=== PATIENT | male | born 1980 | race Caucasian/White ===

== ENCOUNTER 2025-01-18 09:58 | Inpatient (IN) | payer BC, OTHER ==
--- NOTE | 2025-01-18 10:23 | ED ---
SOB HPI - General Source: patient, RN notes reviewed Mode of arrival: ambulatory Limitations: no limitations <Mario Joya - Last Filed: 01/18/25 10:20> <Brock Avila - Last Filed: 01/18/25 14:23> - General Chief Complaint: Shortness of Breath Stated Complaint: ABN EKG Time Seen by Provider: 01/18/25 10:09 - History of Present Illness Initial Comments: Quick note: This is a 44-year-old male with history of hypertension presenting with shortness of breath x 2 weeks. Patient endorses recently seeing Dr. Perez who advised to go to ER after discovery of a flutter on EKG. Patient states shortness of breath worsened yesterday with associated dyspnea with exertion. Endorses recent influenza diagnosis. (Mario Joya) Dictation was produced using [employer] dictation software. please excuse any grammatical, word or spelling errors. Chief Complaint: 44-year-old male transferred from primary care physician's office for new onset A-fib History of Present Illness: Patient is a 44-year-old male he had the flu couple weeks ago. He was diagnosed at an urgent care. He was still having some shortness of breath and was followed up with at primary care physician's office. He had EKG performed found to be in atrial flutter. He was sent to the emergency department for further care. Patient has no history of A-fib he states that he does have strong family history of irregular heartbeat. Denies any chest pain. Patient states that shortness of breath is worse with exertion. Denies any lower extremity symptoms. The ROS documented in this emergency department record has been reviewed and confirmed by me. Those systems with pertinent positive or negative responses have been documented in the HPI. All other systems are other negative and/or noncontributory. (Brock Avila) - Related Data Allergies Allergy/AdvReac Type Severity Reaction Status Date / Time No Known Allergies Allergy Verified 01/18/25 10:18 Review of Systems ROS Other: All systems not noted in ROS Statement are negative. <Mario Joya - Last Filed: 01/18/25 10:20> ROS Other: All systems not noted in ROS Statement are negative. <Brock Avila - Last Filed: 01/18/25 14:23> ROS Statement: Those systems with pertinent positive or pertinent negative responses have been documented in the HPI. Past Medical History Past Medical History: Hypertension Past Surgical History: No Surgical Hx Reported Additional Past Surgical History / Comment(s): vasectomy Past Psychological History: No Psychological Hx Reported Smoking Status: Never smoker Past Alcohol Use History: Occasional Past Drug Use History: None Reported <Mario Joya - Last Filed: 01/18/25 10:20> General Exam Limitations: no limitations <Mario Joya - Last Filed: 01/18/25 10:20> <Brock Avila - Last Filed: 01/18/25 14:23> - General Exam Comments Initial Comments: Visual Physical Exam Vital signs reviewed General: Well-appearing, nontoxic, no acute distress. Head: Normocephalic, atraumatic Eyes: PERRLA, EOMI ENT: Airway patent Chest: Nonlabored breathing Skin: No visual rash, normal skin tone Neuro: Alert and oriented 3 Musculoskeletal: No gross abnormalities (Mario Joya) PHYSICAL EXAM: General Impression: Alert and oriented x3, not in acute distress HEENT: Normocephalic atraumatic, extra-ocular movements intact, pupils equal and reactive to light bilaterally, mucous membranes moist. Cardiovascular: Irregularly irregular Chest: Able to complete full sentences, no retractions, no tachypnea Abdomen: abdomen soft, non-tender, non-distended, no organomegaly Musculoskeletal: Pulses present and equal in all extremities, no peripheral eddie a Motor: no focal deficits noted Neurological: CN II-XII grossly intact, no focal motor or sensory deficits noted Skin: Intact with no visualized rashes Psych: Normal affect and mood (Brock Avila) Course Vital Signs 01/18/25 01/18/25 01/18/25 10:12 13:34 13:56 Temperature 97.8 F Pulse Rate 124 H 115 H 130 H Respiratory 26 H 20 20 Rate Blood Pressure 152/109 136/107 145/113 O2 Sat by Pulse 98 98 98 Oximetry Medical Decision Making <Mario Joya - Last Filed: 01/18/25 10:20> - Lab Data Result diagrams: 01/18/25 11:20 01/18/25 11:23 <Bayudan,Brock D - Last Filed: 01/18/25 14:23> - Medical Decision Making I completed the quick note portion of this chart signed GRANT Renee (Mario Joya) My EKG interpretation: Ventricular rate 130, A-fib with RVR, QRS 100, QTc 398. No NJ prolongation, no QTC prolongation, no ST or T-wave changes noted. Was pt. sent in by a medical professional or institution (, FABY, INVESTMENT ANALYST, urgent care, hospital, or fci...) When possible be specific @ -No Did you speak to anyone other than the patient for history (EMS, parent, family, police, friend...)? What history was obtained from this source @ -No Did you review nursing and triage notes (agree or disagree)? Why? @ -I reviewed and agree with nursing and triage notes Were old charts reviewed (outside hosp., previous admission, EMS record, old EKG, old radiological studies, urgent care reports/EKG's, fci records)? Report findings @ -No old charts were reviewed Differential Diagnosis (chest pain, altered mental status, abdominal pain women, abdominal pain men, vaginal bleeding, musculoskeletal, weakness, fever, dyspnea, syncope, headache, dizziness, GI bleed, back pain, seizure, CVA, palpatations, mental health)? @ -Differential Dyspnea: Coronary syndrome, arrhythmia, tamponade, asthma, COPD, pulmonary embolism, pneumonia, pneumothorax, pulmonary effusion, anaphylaxis, diabetic ketoacidosis, flailed chest, pulmonary contusion, diaphragmatic rupture, anemia, neuromuscular, this is not meant to be an all-inclusive list. EKG interpreted by me (3pts min.). @ -See above X-rays interpreted by me (1pt min.). @ -Chest x-ray is nonacute CT interpreted by me (1pt min.). @ -CT angiography of the chest shows no PE U/S interpreted by me (1pt. min.). @ -None done What testing was considered but not performed or refused? (CT, X-rays, U/S, labs)? Why? @ -None What meds were considered but not given or refused? Why? @ -None Was smoking cessation discussed for >3mins.? @ -No Were there social determinants of health that impacted care today? How? (Homelessness, low income, unemployed, alcoholism, drug addiction, transportation, low edu. Level, literacy, decrease access to med. care, usp, rehab)? @ -No Was there de-escalation of care discussed even if they declined (Discuss DNR or withdrawal of care, Hospice)? DNR status @ -No What co-morbidities impacted this encounter? (DM, HTN, Smoking, COPD, CAD, Cancer, CVA, ARF, Chemo, Hep., AIDS, mental health diagnosis, sleep apnea, morbid obesity)? @ -None Was patient admitted / discharged? Hospital course, mention meds given and route, prescriptions, significant lab abnormalities, going to OR and other pertinent info. @ -44-year-old male sent in from primary care physician office for new onset atrial flutter. Vital signs upon arrival shows heart rate of 124, blood pressure normal. Patient well-appearing in no acute distress. Started on Cardizem and anticoagulation medication patient will be admitted consultation to cardiology. Patient heart rate improving with Cardizem. Case discussed with hospitalist for admission Did you discuss the management of the patient with other professionals (professionals i.e. , PA, INVESTMENT ANALYST, lab, RT, psych nurse, social media assistant, electric needle specialist, teacher, medical information officer, manager of case)? Give summary @ -See above Was critical care preformed (if so, how long)? @ -Yes, 33 minutes Undiagnosed new problem with uncertain prognosis? @ -No Drug Therapy requiring intensive monitoring for toxicity (Heparin, Nitro, Insulin, Cardizem)? @ -No Were any procedures done? @ -No Diagnosis/symptom? Acute, or Chronic, or Acute on Chronic? Uncomplicated (without systemic symptoms) or Complicated (systemic symptoms)? @ -A-fib with RVR Side effects of treatment? @ -No Exacerbation, Progression, or Severe Exacerbation? @ -No Poses a threat to life or bodily function? How? (Chest pain, USA, CA, pneumonia, PE, COPD, DKA, ARF, appy, cholecystitis, CVA, Diverticulitis, Homicidal, Suicida l, threat to staff... and all critical care pts) @ -yes (Brock Avila) - Lab Data Lab Results 01/18/25 01/18/25 01/18/25 Range/Units 11:20 11:23 11:23 WBC 8.68 (4.50-10.00) 10*3/uL RBC 4.50 (4.40-5.60) 10*6/uL Hgb 14.5 (13.0-17.0) g/dL Hct 41.3 (39.6-50.0) % MCV 91.8 (80.0-97.0) fL MCH 32.2 H (27.0-32.0) pg MCHC 35.1 (32.0-37.0) g/dL Plt Count 225 (140-440) 10*3/uL MPV 9.4 L (9.5-12.2) fL Immature Gran % (Auto) 0.7 % Neutrophils % 65.4 % Lymphocytes % 26.3 % Monocytes % 6.2 % Eosinophils % 0.5 % Basophils % 0.9 % Immature Gran # 0.06 H (0.00-0.04) 10*3/uL Neutrophils # 5.68 (1.80-7.70) 10*3/uL Lymphocytes # 2.28 (0.90-5.00) 10*3/uL Monocytes # 0.54 (0.20-1.00) 10*3/uL Eosinophils # 0.04 (0.04-0.35) 10*3/uL Basophils # 0.08 (0.00-0.10) 10*3/uL PT 11.1 (10.0-12.5) sec INR 1.0 (<1.2) APTT 22.1 (22.0-30.0) sec D-Dimer 0.68 H (<0.60) mg/L FEU Sodium 134 L (137-145) mmol/L Potassium 4.9 (3.5-5.1) mmol/L Chloride 106 (98-107) mmol/L Carbon Dioxide 22 (22-30) mmol/L Anion Gap 6 mmol/L BUN 18 (9-20) mg/dL Creatinine 1.03 (0.66-1.25) mg/dL Est GFR (CKD-EPI)AfAm >90 (>60 ml/min/1.73 sqM) Est GFR (CKD-EPI)NonAf 87 (>60 ml/min/1.73 sqM) Glucose 135 H (74-99) mg/dL Plasma Lactic Acid Sav (0.7-2.0) mmol/L Calcium 9.6 (8.4-10.2) mg/dL Magnesium 1.9 (1.6-2.3) mg/dL Total Bilirubin 1.2 (0.2-1.3) mg/dL AST 35 (17-59) U/L ALT 59 H (4-49) U/L Alkaline Phosphatase 79 (38-126) U/L Troponin I (0.000-0.034) ng/mL NT-Pro-B Natriuret Pep 1800 pg/mL Total Protein 6.8 (6.3-8.2) g/dL Albumin 4.1 (3.5-5.0) g/dL 01/18/25 01/18/25 Range/Units 11:23 11:23 WBC (4.50-10.00) 10*3/uL RBC (4.40-5.60) 10*6/uL Hgb (13.0-17.0) g/dL Hct (39.6-50.0) % MCV (80.0-97.0) fL MCH (27.0-32.0) pg MCHC (32.0-37.0) g/dL Plt Count (140-440) 10*3/uL MPV (9.5-12.2) fL Immature Gran % (Auto) % Neutrophils % % Lymphocytes % % Monocytes % % Eosinophils % % Basophils % % Immature Gran # (0.00-0.04) 10*3/uL Neutrophils # (1.80-7.70) 10*3/uL Lymphocytes # (0.90-5.00) 10*3/uL Monocytes # (0.20-1.00) 10*3/uL Eosinophils # (0.04-0.35) 10*3/uL Basophils # (0.00-0.10) 10*3/uL PT (10.0-12.5) sec INR (<1.2) APTT (22.0-30.0) sec D-Dimer (<0.60) mg/L FEU Sodium (137-145) mmol/L Potassium (3.5-5.1) mmol/L Chloride (98-107) mmol/L Carbon Dioxide (22-30) mmol/L Anion Gap mmol/L BUN (9-20) mg/dL Creatinine (0.66-1.25) mg/dL Est GFR (CKD-EPI)AfAm (>60 ml/min/1.73 sqM) Est GFR (CKD-EPI)NonAf (>60 ml/min/1.73 sqM) Glucose (74-99) mg/dL Plasma Lactic Acid Sav 1.8 (0.7-2.0) mmol/L Calcium (8.4-10.2) mg/dL Magnesium (1.6-2.3) mg/dL Total Bilirubin (0.2-1.3) mg/dL AST (17-59) U/L ALT (4-49) U/L Alkaline Phosphatase (38-126) U/L Troponin I <0.012 (0.000-0.034) ng/mL NT-Pro-B Natriuret Pep pg/mL Total Protein (6.3-8.2) g/dL Albumin (3.5-5.0) g/dL Disposition <Mario Joya - Last Filed: 01/18/25 10:20> Decision Time: 14:22 <Brock Avila - Last Filed: 01/18/25 14:23> Clinical Impression: New onset a-fib Disposition: ADMITTED IP TO THIS HOSP Condition: Fair Referrals: Dilan Perez MD [Primary Care Provider] - 1-2 days
--- NOTE | 2025-01-18 10:49 | XR ---
EXAMINATION TYPE: XR chest 2V DATE OF EXAM: 01/18/2025 10:40 AM COMPARISON: None. CLINICAL INDICATION: Male, 44 years old with history of difficulty breathing, TECHNIQUE: XR chest 2V view(s) obtained. FINDINGS: The heart size is normal. The pulmonary vasculature is normal. The lungs are clear. IMPRESSION: 1. No acute pulmonary process. [facility], , 01/18/2025 10:47 AM
[2025-01-18 11:49] LABS: Basophils # (A) 0.08 10*3/uL (0.00-0.10); Basophils % (A) 0.9 %; Eosinophils # (A) 0.04 10*3/uL (0.04-0.35); Eosinophils % (A) 0.5 %; HCT 41.3 % (39.6-50.0); HGB 14.5 g/dL (13.0-17.0); Lymphocytes # (A) 2.28 10*3/uL (0.90-5.00); Lymphocytes % (A) 26.3 %; MCH 32.2 pg (27.0-32.0); MCHC 35.1 g/dL (32.0-37.0); MCV 91.8 fL (80.0-97.0); Mean Platelet Volume 9.4 fL (9.5-12.2); Monocytes # (A) 0.54 10*3/uL (0.20-1.00); Monocytes % (A) 6.2 %; Neutrophils # (A) 5.68 10*3/uL (1.80-7.70); Neutrophils % (A) 65.4 %; Platelet Count 225 10*3/uL (140-440); RDW 11.9 % (11.5-14.5); WBC 8.68 10*3/uL (4.50-10.00)
[2025-01-18 12:06] LABS: ALT 59 U/L (4-49); AST 35 U/L (17-59); African American GFR (CKD) >90 (>60 ml/min/1.73 sqM); Albumin 4.1 g/dL (3.5-5.0); Alkaline Phosphatase 79 U/L (38-126); Anion Gap 6 mmol/L; Blood Urea Nitrogen 18 mg/dL (9-20); Calcium 9.6 mg/dL (8.4-10.2); Carbon Dioxide 22 mmol/L (22-30); Chloride 106 mmol/L (98-107); Glucose 135 mg/dL (74-99); Magnesium 1.9 mg/dL (1.6-2.3); Non-African American GFR(CKD) 87 (>60 ml/min/1.73 sqM); Potassium 4.9 mmol/L (3.5-5.1); Sodium 134 mmol/L (137-145); Total Bilirubin 1.2 mg/dL (0.2-1.3); Total Protein 6.8 g/dL (6.3-8.2)
[2025-01-18 12:13] LABS: NT-Pro-B-Type Natriuretic Pept 1800 pg/mL
[2025-01-18 12:29] LABS: Partial Thromboplastin Time 22.1 sec (22.0-30.0); Prothrombin Time 11.1 sec (10.0-12.5)
[2025-01-18] MEDS: SODIUM CHLORIDE 0.9% 1,000 ML IV STA (13:02)
--- NOTE | 2025-01-18 13:44 | CT ---
EXAMINATION TYPE: CT angio chest DATE OF EXAM: 01/18/2025 COMPARISON: None CLINICAL INDICATION: Male, 44 years old with history of positive D-dimer; PHH, Positive D-dimer. TECHNIQUE: CTA scan of the thorax is performed with IV Contrast, patient injected with 100 ml mL of Isovue 370, pulmonary embolism protocol. MIP images are created and reviewed. CT DLP: 1047.[address] CTDI: mGy Automated exposure control for dose reduction was used. FINDINGS: There are no filling defects within the pulmonary arterial circulation suggest pulmonary embolism. He art size appears mildly prominent. The great vessels chest are normal. There is no mediastinal, hilar or axillary adenopathy. There is a small focal cluster of tree-in-bud densities in the right lower lobe posteriorly and a 10 to 11 mm groundglass density in the left upper lobe anteriorly. These are nonspecific findings but mo st likely represent small focal areas of inflammation which could be either acute or chronic. Follow- up CT in 3 months is recommended for further evaluation. There is no airspace consolidation. No pleural effusion or pneumothorax. Limited scanning through the upper abdomen reveals liver steatosis. No focal osseous lesions are seen. IMPRESSION: 1. No pulmonary embolism. 2. Small focal lung parenchymal abnormalities as described above which are nonspecific and could repr esent small focal areas of acute or chronic inflammation.. Follow-up CT in 3 months is recommended. 3. Liver steatosis. [facility], , 01/18/2025 1:42 PM
[2025-01-18] MEDS ORDERED: NALOXONE 0.4 MG/ML 1 ML VIAL IV PRN (14:14)
[2025-01-18] MEDS: DILTIAZEM 125 MG in SODIUM CHLORIDE 0.9% 100 ML IV SCH (14:25)
[2025-01-18] MEDS: DILTIAZEM DRIP BOLUS FROM BAG 1 MG SOLN IV ONE (14:25)
[2025-01-18] MEDS: HEPARIN SODIUM 1,000 UN/ML (10ML VL) IV ONE (14:27)
[2025-01-18] MEDS: HEPARIN SOD,PORK IN 0.45% NACL 25,000 UNIT in 0.45% NACL 1 250ML.BAG IV SCH (14:29)
[2025-01-18] MEDS: SODIUM CHLORIDE 0.9% 1,000 ML IV SCH (14:50)
--- NOTE | 2025-01-18 16:01 | P.HPIM ---
History of Present Illness H&P Date: 01/18/25 Patient is a 44-year-old male with past medical history of morbid obesity BMI 46, not following with primary care physician for years, who presented to the ER from his new PCP office for abnormal EKG showing a flutter reportedly. He schedule an appointment for01/18 for evaluation of ongoing shortness of breath that started 2 or 3 weeks ago after he was diagnosed with flu at urgent care. On 01/17 his shortness of breath got to the point where he could not catch up on his breath, and then resolved by the evening and he has been feeling back to his normal ever since. He does some heavy duty at work, transports heavy objects, usually gets short of breath but recovers fast, lately noted that his recovery time has increased significantly. He denies any associated chest pain, discomfort, abdominal pain, fevers, chills, diaphoresis, nausea, vomiting, dizziness, lightheadedness, abdominal discomfort, changes in bowel habits, urinary symptoms, lower extremity swelling. Denied PND, orthopnea He denies any history of previous cardiac disease. Family history is significant for abnormal heartbeats in his maternal grandfather. He is a non- smoker, no history of heavy alcohol use, no drug use. On arrival he was afebrile and tachycardic with heart rate in 124, BP elevated 152/109, satting well on room air. Lab work significant for normal CBC, elevated D-dimer 0.68, otherwise unremarka ble coagulation, chemistry profile with sodium of 134, normal potassium, chloride, bicarb, creatinine, glucose elevated 135, plasma lactic acid normal, troponin negative, ALT mildly elevated 59, normal AST, BNP 1800 EKG showed A-fib with RVR heart rate in 130s, personally reviewed. Chest x-ray reviewed, no acute cardiopulmonary process. CTA showed no signs of PE, did reveal small focal lung parenchymal abnormalities, nonspecific, follow-up CT in 3 months recommended. Liver steatosis. Patient will be admitted for further evaluation of new onset A-fib with RVR, started on heparin and Cardizem drips, cardiology consulted, TTE ordered Pertinent positives and negatives as discussed in HPI, a complete review of systems was performed and all other systems are negative. Patient seen and examined at bedside. Vital signs reviewed General: nontoxic, no distress, appears at stated age, obese Derm: warm, dry Head: atraumatic, normocephalic, symmetric Eyes: EOMI, no lid lag, anicteric sclera, pupils equal round reactive to light ENT: Nose and ears atraumatic Neck: No thyromegaly, supple Mouth: no lip lesion, mucus membranes moist Cardiovascular: S1S2 irreg, tachycardic, no murmur Lungs: clear to auscultation bilateral, no rhonchi, no rales, no wheeze, no accessory muscle use Abdominal: soft, nontender to palpation, no guarding, no appreciable organomegaly Ext: no gross muscle atrophy, muscle strength muscle strength 5 out of 5 in all 4 extremities, no contractures Neuro: CN II-XII grossly intact Psych: Alert, oriented, appropriate affect Assessment/Plan: New onset A-fib with RVR -Cardiology consulted, appreciate recommendations -Continue heparin drip -Continue diltiazem drip, discussed with ER, provided with additional bolus of 20 mg IV once, currently infusing at 10 mg/h, heart rate controlled in 90s -Continue telemetry -TSH, lipid profile, A1c ordered -Recommend outpatient sleep study -TTE ordered and pending Morbid obesity BMI 46 Hepatic steatosis elevated liver enzymes 2/2 above -Recommend structured weight loss program The patient is admitted with an anticipated [greater] than 2 midnight stay as [inpatient/] status for evaluation of new onset A-fib CODE STATUS: Full code DVT prophylaxis: Heparin drip Anticipated discharge date: TBD Anticipated discharge place: Home A total of 40 minutes was spent on the care of this complex patient more than 50% of the time was spent in counseling and care coordination. Past Medical History Past Medical History: Hypertension Past Surgical History: No Surgical Hx Reported Additional Past Surgical History / Comment(s): vasectomy Past Psychological History: No Psychological Hx Reported Smoking Status: Never smoker Past Alcohol Use History: Occasional Past Drug Use History: None Reported Medications and Allergies Allergies Allergy/AdvReac Type Severity Reaction Status Date / Time No Known Allergies Allergy Verified 01/18/25 10:18 Physical Exam Vitals: Vital Signs Temp Pulse Resp BP Pulse Ox 01/18/25 13:56 130 H 20 145/113 98 01/18/25 13:34 115 H 20 136/107 98 01/18/25 10:12 97.8 F 124 H 26 H 152/109 98 Intake and Output 0401/18/25 01/18/25 22:59 06:59 14:59 Other: Weight 149.685 kg Results CBC & Chem 7: 01/18/25 11:20 01/18/25 11:23 Labs: Abnormal Lab Results - Last 24 Hours (Table) 01/18/25 01/18/25 01/18/25 Range/Units 11:20 11:23 11:23 MCH 32.2 H (27.0-32.0) pg MPV 9.4 L (9.5-12.2) fL Immature Gran # 0.06 H (0.00-0.04) 10*3/uL D-Dimer 0.68 H (<0.60) mg/L FEU Sodium 134 L (137-145) mmol/L Glucose 135 H (74-99) mg/dL ALT 59 H (4-49) U/L
[2025-01-18] MEDS: HEPARIN SODIUM 1,000 UN/ML (10ML VL) IV PRN (22:05)
[2025-01-19 02:53] LABS: Chol/HDL Ratio 6.87 Ratio; LDL Cholesterol,Calculated 165.1 mg/dL (0.0-131.0)
[2025-01-19] MEDS ORDERED: ALPRAZolam 0.25 MG TAB PO PRN (09:20)
[2025-01-19] MEDS ORDERED: ALPRAZolam 0.5 MG TAB PO PRN (09:20)
[2025-01-19] MEDS ORDERED: NITROGLYCERIN SL TABS 0.4 MG TAB SUBLINGUAL PRN (09:20)
[2025-01-19] MEDS: DAPAGLIFLOZIN PROPANEDIOL 10 MG TABLET PO SCH (10:16)
[2025-01-19] MEDS: ATORVASTATIN 80 MG TAB PO STA (10:16)
[2025-01-19] MEDS: ASPIRIN 325 MG TAB PO STA (10:16)
[2025-01-19] MEDS: METOPROLOL SUCCINATE (ER) 25 MG TAB.ER.24H PO SCH (10:17)
--- NOTE | 2025-01-19 10:54 | P.CRDCN ---
History of Present Illness Consult date: 01/19/25 Reason for Consult (text): New onset atrial fibrillation History of present illness: This is a 44-year-old male with no previous cardiac history and does not follow with a hand edger. He has a past medical history of ADD. We have been asked to evaluate the patient for new onset of atrial fibrillation. Patient gives history that 2 days ago he woke up with shortness of breath was unable to catch his breath for a long period of time during the day by 8 PM in the evening he was feeling back to normal. He decided to set up an appointment with a PCP and was seen yesterday in the office. Patient was found to be in atrial fibrillation and was sent to [facility] for evaluation. Patient was found to be in atrial fibrillation with RVR and has since converted to sinus rhythm. Patient was started on heparin drip and Cardizem drip. He states he has had a cough and at that time tightness in his chest. He denies palpitations. He states he had hypertension 13 years ago and his blood pressure was 150/85 approximately on medication and he decided to stop the medication because the medications did not improve his blood pressure readings. He denies prior history of diabetes but his A1c is 6.8. He denies any blood in his urine or stool. No lightheadedness or dizziness. No syncopal episodes. 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 He denies smoking history. He states he does not drink alcohol often but when he does he overindulges. Patient also notes that he snores and has not had a workup for JAYSHREE. Patient presented with a blood pressure of 152/109. Blood pressure 131/87, heart rate 88, pulse ox 97% on room air. Patient is feeling well at the time of evaluation. Preliminary report on echocardiogram is a low EF. Because of this, Dr. Geroge discussed with the patient recommendations for cardiac c atheterization and he is agreeable to move forward with this today. -EKG: Atrial fibrillation with ventricular rate of 130 bpm. Repeat EKG this morning is sinus rhythm nonspecific T wave changes. -Chest x-ray: No acute process. -CTA chest: No pulmonary embolism. Small focal lung parenchymal abnormalities nonspecific could represent focal areas of acute or chronic inflammation. Liver steatosis. -Laboratory studies: WBC 8.6, hemoglobin 14.5, D-dimer 0.68, sodium 134, BUN 18 creatinine 1.03. Troponin negative x 1. proBNP 1800. Triglycerides 281, cholesterol 259, LDL 165, TSH 2.7. Hemoglobin A1c 6.8. Magnesium 1.9. -Home cardiac medications: Losartan 50 daily was prescribed on 01/18 and patient has not started it. - Review Of Systems: At the time of my exam: CONSTITUTIONAL: Denies fever or chills. HEENT: Denies blurred vision, vision changes, or eye pain. Denies hemoptysis CARDIOVASCULAR: Denies chest pain. Denies orthopnea. Denies PND. Denies palpitations RESPIRATORY: Denies shortness of breath. GASTROINTESTINAL: Denies abdominal pain. Denies nausea or vomiting. HEMATOLOGIC: Denies bleeding disorders. GENITOURINARY: Denies any blood in urine. SKIN: Denies puritis. Denies rash. Physical examination: Gen: This is a morbidly obese 44-year-old male in no acute distress VS: reviewed HEENT: Head is atraumatic, normocephalic. Pupils equal, round. Sclerae is anicteric. NECK: Supple. No JVD. LUNGS: Clear to auscultation. No wheezes or rhonchi. No intercostal retractions. HEART: Regular rate and rhythm. No murmur. ABDOMEN: Soft No tenderness. EXTREMITIES: No pedal edema. No calf tenderness. NEUROLOGICAL: Patient is awake, alert and oriented x3. Assessment: New onset of paroxysmal atrial fibrillation with RVR, converted to sinus rhythm Cardiomyopathy, ischemic versus nonischemic Uncontrolled hypertension Elevated D-dimer, PE ruled out by CTA Hyperlipidemia Suspect obstructive sleep apnea and recommend outpatient sleep study Morbid obesity with BMI of 45 Hepatic steatosis Plan: Discontinue heparin drip prior to cardiac catheterization Discontinue Cardizem drip Start patient on a atorvastatin 40 mg at bedtime, Eliquis 5 mg twice daily, Toprol XL 25 mg daily, Aldactone 25 mg daily, Farxiga 10 mg daily Schedule patient for cardiac catheterization today with Dr. George Obtain 2-D echocardiogram and Doppler study report Further recommendations to follow based upon clinical course At the time of discharge, patient will follow-up with Dr. George in the office in 1 week Thank you kindly for this consultation. Nurse practitioner note has been reviewed, I agree with documented findings and plan of care. Patient was seen and examined. Past Medical History Past Medical History: Hypertension History of Any Multi-Drug Resistant Organisms: None Reported Past Surgical History: No Surgical Hx Reported Additional Past Surgical History / Comment(s): vasectomy Past Psychological History: No Psychological Hx Reported Smoking Status: Never smoker Past Alcohol Use History: Occasional Past Drug Use History: None Reported Medications and Allergies Home Medications Medication Instructions Recorded Confirmed Type Calcium Carb/Mag Ox/Zinc Sulf 1 tab PO BID 01/18/25 01/18/25 History [Mzh-Uey-Bywz 334-134-5 mg Tab] Ibuprofen [Motrin Ib] 600 mg PO BID 01/18/25 01/18/25 History Losartan [Cozaar] 50 mg PO DIRECTED 01/18/25 01/18/25 History Sildenafil Citrate [Viagra] 100 mg PO DIRECTED PRN 01/18/25 01/18/25 History Allergies Allergy/AdvReac Type Severity Reaction Status Date / Time No Known Allergies Allergy Verified 01/18/25 16:23 Physical Exam Vitals: Vital Signs Temp Pulse Pulse Resp BP BP Pulse Ox 01/19/25 04:00 98.5 F 94 17 106/79 98 01/19/25 01:45 78 18 01/18/25 23:21 92 18 01/18/25 22:50 98.3 F 89 17 132/95 99 01/18/25 21:47 110 H 18 104/77 98 01/18/25 19:35 98 18 108/78 98 01/18/25 18:03 104 H 18 102/89 97 01/18/25 16:57 105 H 18 105/87 100 01/18/25 16:03 111 H 18 108/78 98 01/18/25 14:52 81 18 106/67 96 01/18/25 13:56 130 H 20 145/113 98 01/18/25 13:34 115 H 20 136/107 98 01/18/25 10:12 97.8 F 124 H 26 H 152/109 98 Intake and Output 01/18/25 01/19/25 01/19/25 22:59 06:59 14:59 Intake Total 75.833 230.986 85 Balance 75.833 230.986 85 Intake: Intake, IV Titration 75.833 230.986 85 Amount Diltiazem 125 mg In 93.167 85 Sodium Chloride 0.9% 100 ml @ 10 MG/HR 10 mls/hr IV .[id number] [facility] Rx#: [id number] Heparin Sod,Pork in 0.45% 75.833 137.819 NaCl 25,000 unit In 0.45 % NaCl 1 250ml.bag @ 6. 681 UNITS/KG/HR 10 mls/hr IV .Q24H [facility] Rx#: [id number] Other: Voiding Method Toilet # Voids 1 Weight 149.685 kg 146.4 kg Results 01/18/25 11:20 01/18/25 11:23 Cardiac Enzymes 01/18/25 01/18/25 Range/Units 11:23 11:23 AST 35 (17-59) U/L Troponin I <0.012 (0.000-0.034) ng/mL Coagulation 01/18/25 01/18/25 01/19/25 Range/Units 11:23 20:38 03:52 PT 11.1 (10.0-12.5) sec APTT 22.1 23.5 27.2 (22.0-30.0) sec Lipids 01/18/25 Range/Units 11:23 Triglycerides 281.00 H (0.00-149.00) mg/dL Cholesterol 259.00 H (0.00-200.00) mg/dL HDL Cholesterol 37.70 L (40.00-60.00) mg/dL Cholesterol/HDL Ratio 6.87 Ratio CBC 01/18/25 Range/Units 11:20 WBC 8.68 (4.50-10.00) 10*3/uL RBC 4.50 (4.40-5.60) 10*6/uL Hgb 14.5 (13.0-17.0) g/dL Hct 41.3 (39.6-50.0) % Plt Count 225 (140-440) 10*3/uL Comprehensive Metabolic Panel 01/18/25 Range/Units 11:23 Sodium 134 L (137-145) mmol/L Potassium 4.9 (3.5-5.1) mmol/L Chloride 106 (98-107) mmol/L Carbon Dioxide 22 (22-30) mmol/L BUN 18 (9-20) mg/dL Creatinine 1.03 (0.66-1.25) mg/dL Glucose 135 H (74-99) mg/dL Calcium 9.6 (8.4-10.2) mg/dL AST 35 (17-59) U/L ALT 59 H (4-49) U/L Alkaline Phosphatase 79 (38-126) U/L Total Protein 6.8 (6.3-8.2) g/dL Albumin 4.1 (3.5-5.0) g/dL Current Medications Generic Name Dose Route Start Last Admin Trade Name Freq PRN Reason Stop Dose Admin Atorvastatin Calcium 40 mg 01/19/25 21:00 Atorvastatin 40 Mg Tab PO HS [facility] Heparin Sodium (Porcine) 0 unit 01/18/25 14:01 01/19/25 05:03 Heparin Sodium 1,000 Un/Ml (10ml Vl) IV 7,300 unit PER PROTOCOL PRN Administration Low PTT Protocol Heparin Sodium/Sodium Chloride 250 mls @ 10 mls/hr 01/18/25 14:15 01/19/25 06:59 25,000 unit/ Sodium Chloride IV 12.681 units/kg/hr .Q24H [facility] 18.982 mls/hr Administration Protocol 6.681 UNITS/KG/HR Diltiazem HCl 125 mg/ Sodium 125 mls @ 10 mls/hr 01/18/25 14:15 01/19/25 08:14 Chloride IV 10 mg/hr .[id number] [facility] 10 mls/hr Administration 10 MG/HR Naloxone HCl 0.2 mg 01/18/25 14:14 Naloxone 0.4 Mg/Ml 1 Ml Vial IV Q2M PRN Opioid Reversal Intake and Output 01/18/25 01/19/25 01/19/25 22:59 06:59 14:59 Intake Total 75.833 230.986 85 Balance 75.833 230.986 85 Intake: Intake, IV Titration 75.833 230.986 85 Amount Diltiazem 125 mg In 93.167 85 Sodium Chloride 0.9% 100 ml @ 10 MG/HR 10 mls/hr IV .[id number] [facility] Rx#: [id number] Heparin Sod,Pork in 0.45% 75.833 137.819 NaCl 25,000 unit In 0.45 % NaCl 1 250ml.bag @ 6. 681 UNITS/KG/HR 10 mls/hr IV .Q24H [facility] Rx#: [id number] Other: Voiding Method Toilet # Voids 1 Weight 149.685 kg 146.4 kg 01/18/25 11:20 01/18/25 11:23
--- NOTE | 2025-01-19 11:28 | CA ---
Transthoracic Echo Report Name: Rah lEmore Age: 44 Gender: M : 1980 Exam Date: 01/19/2025 08:21 Exam Location: [facility] Ht (in): 71 Wt (lb): 330 Ordering Physician: Hiral Olivo MD Attending/Referring Phys: Explosives Handler Leslee Blair RDCS Procedure CPT: Indications: new afib RVR Cardiac Hx: Technical Quality: Fair, Poor Contrast 1: Definity Total Dose (mL): 2 Contrast 2: Total Dose (mL): MEASUREMENTS (Male / Female) Normal Values 2D ECHO LV Diastolic Diameter PLAX 6.4 cm 4.2 - 5.9 / 3.9 - 5.3 cm LV Systolic Diameter PLAX 5.6 cm IVS Diastolic Thickness 1.2 cm 0.6 - 1.0 / 0.6 - 0.9 cm LVPW Diastolic Thickness 1.3 cm 0.6 - 1.0 / 0.6 - 0.9 cm LV Relative Wall Thickness 0.4 RV Internal Dim ED PLAX 3.1 cm LA Systolic Diameter LX 6.0 cm 3.0 - 4.0 / 2.7 - 3.8 cm LA Volume 158.4 cm??? 18 - 58 / 22 - 52 cm??? LA Volume Index 56.3 cm???/m??? 16 - 28 cm???/m??? M-MODE Aortic Root Diameter MM 3.6 cm LA Systolic Diameter MM 5.5 cm LA Ao Ratio MM 1.5 AV Cusp Separation MM 2.3 cm DOPPLER MV Area PHT 4.1 cm??? Mitral E Point Velocity 108.8 cm/s Mitral A Point Velocity 0.6 cm/s Mitral E to A Ratio 196.1 MV Deceleration Time 185.5 ms TR Peak Velocity 264.3 cm/s TR Peak Gradient 27.9 mmHg FINDINGS Left Ventricle Left ventricular ejection fraction is estimated at 20-25 %. Mildly increased septal wall thickness. Moderately increased left ventricular diastolic diameter. Severely reduced global left ventricular systolic function. Right Ventricle Moderate right ventricular dilatation. Right ventricular systolic pressure within normal limits. Right Atrium Moderate right atrial dilatation. Left Atrium Severely increased left atrial diameter. Severely increased left atrial volume. Moderately increased left atrial area. Mitral Valve Structurally normal mitral valve. Vpxv-[id number] mitral regurgitation. No mitral stenosis. Aortic Valve Trileaflet aortic valve. No aortic valve stenosis or regurgitation. Tricuspid Valve Structurally normal tricuspid valve. Mild tricuspid regurgitation. No tricuspid stenosis. Pulmonic Valve Structurally normal pulmonic valve. Trace pulmonic regurgitation. No pulmonic stenosis. Pericardium No pericardial or pleural effusion. Aorta Aorta at upper limits of normal. CONCLUSIONS Dilated LV. Impaired LV systolic function with EF between 20 to 25% with global hypokinesia Mild to moderate mitral regurgitation Dilated right ventricle with impaired function No pericardial effusion Previewed by: Dr. Thomas Chandra MD (Electronically Signed) Final Date: 19 January 2025 11:27
--- NOTE | 2025-01-19 11:37 | P.PN ---
Subjective Progress Note Date: 01/19/25 Hospital Course: Patient is a 44-year-old male with past medical history of morbid obesity BMI 46, not following with primary care physician for years, who presented to the ER from his new PCP office for abnormal EKG showing a flutter reportedly. He schedule an appointment for01/18 for evaluation of ongoing shortness of breath that started 2 or 3 weeks ago after he was diagnosed with flu at urgent care. On 01/17 his shortness of breath got to the point where he could not catch up on his breath, and then resolved by the evening and he has been feeling back to his normal ever since. He does some heavy duty at work, transports heavy objects, usually gets short of breath but recovers fast, lately noted that his recovery time has increased significantly. He denies any associated chest pain, discomfort, abdominal pain, fevers, chills, diaphoresis, nausea, vomiting, dizziness, lightheadedness, abdominal discomfort, changes in bowel habits, urinary symptoms, lower extremity swelling. Denied PND, orthopnea He denies any history of previous cardiac disease. Family history is significant for abnormal heartbeats in his maternal grandfather. He is a non- smoker, no history of heavy alcohol use, no drug use. On arrival he was afebrile and tachycardic with heart rate in 124, BP elevated 152/109, satting well on room air. Lab work significant for normal CBC, elevated D-dimer 0.68, otherwise unremarkable coagulation, chemistry profile with sodium of 134, normal potassium, chloride, bicarb, creatinine, glucose elevated 135, plasma lactic acid normal, troponin negative, ALT mildly elevated 59, normal AST, BNP 1800 EKG showed A-fib with RVR heart rate in 130s, personally reviewed. Chest x-ray reviewed, no acute cardiopulmonary process. CTA showed no signs of PE, did reveal small focal lung parenchymal abnormalities, nonspecific, follow-up CT in 3 months recommended. Liver steatosis. Patient will be admitted for further evaluation of new onset A-fib with RVR, started on heparin and Cardizem drips, cardiology consulted, TTE ordered 01/19 to sinus rhythm, Cardizem discontinued. A1c elevated 6.8, patient notified, started on atorvastatin 40 mg. Cardiology started Eliquis 5 mg twice daily, Toprol-XL 25 daily, Aldactone 25 mg daily, Farxiga 10 mg daily as TTE showed EF of 20 to 25% mild global hypokinesis, mild to moderate mitral regurg, no pericardial effusion, plan for heart cath today. Pertinent Imaging: TTE as above Subjective: Feels back to baseline, denied chest pain, shortness of breath Pertinent positives and negatives as discussed above, a complete review of systems was performed and all other systems are negative. Vitals Signs Reviewed. General: nontoxic, no distress, appears at stated age, obese Derm: warm, dry Head: atraumatic, normocephalic, symmetric Eyes: EOMI, no lid lag, anicteric sclera, pupils equal round reactive to light ENT: Nose and ears atraumatic Neck: No thyromegaly, supple Mouth: no lip lesion, mucus membranes moist Cardiovascular: S1S2 irreg, tachycardic, no murmur Lungs: clear to auscultation bilateral, no rhonchi, no rales, no wheeze, no accessory muscle use Abdominal: soft, nontender to palpation, no guarding, no appreciable organomegaly Ext: no gross muscle atrophy, muscle strength muscle strength 5 out of 5 in all 4 extremities, no contractures Neuro: CN II-XII grossly intact Psych: Alert, oriented, appropriate affect Data Reviewed Today: Pertinent Labs: A1c 6.8, TSH normal, LDL 165 Assessment and Plan: New onset A-fib with RVR converted to sinus Newly diagnosed HFrEF EF 20 to 25% with global hypokinesis Hyperlipidemia -Cardiology consulted, appreciate recommendations -Heparin drip discontinued, started on Eliquis 5 mg twice daily -Started on Toprol-XL 25 p.o. daily, Aldactone 25 mg p.o. daily, Farxiga 10 mg p.o. daily, Lipitor 40 mg p.o. daily, will need to be started on Entresto -Heart cath today -Continue telemetry -Recommend outpatient sleep study Type II DM -Newly diagnosed, will follow-up with primary care physician regarding oral therapy -, Discussed importance of weight loss and diet compliance Morbid obesity BMI 46 Hepatic steatosis elevated liver enzymes 2/2 above -Recommend structured weight loss program CODE STATUS: Full code DVT prophylaxis: eliquis Anticipated discharge date: TBD Anticipated discharge place: Home Objective - Vital Signs Vital signs: Vital Signs Temp 98.3 F 01/19/25 08:00 Pulse 88 01/19/25 08:00 Resp 16 01/19/25 08:00 BP 131/87 01/19/25 08:00 Pulse Ox 97 01/19/25 08:00 FiO2 Intake & Output 01/18/25 01/19/25 01/19/25 18:59 06:59 18:59 Intake Total 306.819 325 Balance 306.819 325 Weight 149.685 kg 146.4 kg Intake: Intake, IV Titration 306.819 85 Amount Diltiazem 125 mg In 93.167 85 Sodium Chloride 0.9% 100 ml @ 10 MG/HR 10 mls/hr IV .[id number] [facility] Rx#: [id number] Heparin Sod,Pork in 0.45% 213.652 NaCl 25,000 unit In 0.45 % NaCl 1 250ml.bag @ 6. 681 UNITS/KG/HR 10 mls/hr IV .Q24H [facility] Rx#: [id number] Oral 240 Other: Voiding Method Toilet Toilet # Voids 1 - Labs CBC & Chem 7: 01/18/25 11:20 01/18/25 11:23 Labs: Abnormal Lab Results - Last 24 Hours (Table) 01/18/25 01/18/25 01/18/25 Range/Units 11:20 11:20 11:23 MCH 32.2 H (27.0-32.0) pg MPV 9.4 L (9.5-12.2) fL Immature Gran # 0.06 H (0.00-0.04) 10*3/uL D-Dimer 0.68 H (<0.60) mg/L FEU Sodium (137-145) mmol/L Glucose (74-99) mg/dL Hemoglobin A1c 6.8 H (<=6.0) % ALT (4-49) U/L Triglycerides (0.00-149.00) mg/dL Cholesterol (0.00-200.00) mg/dL LDL Cholesterol, Calc (0.0-131.0) mg/dL VLDL Cholesterol, Calc (5.00-40.00) mg/dL HDL Cholesterol (40.00-60.00) mg/dL 01/18/25 01/18/25 Range/Units 11:23 11:23 MCH (27.0-32.0) pg MPV (9.5-12.2) fL Immature Gran # (0.00-0.04) 10*3/uL D-Dimer (<0.60) mg/L FEU Sodium 134 L (137-145) mmol/L Glucose 135 H (74-99) mg/dL Hemoglobin A1c (<=6.0) % ALT 59 H (4-49) U/L Triglycerides 281.00 H (0.00-149.00) mg/dL Cholesterol 259.00 H (0.00-200.00) mg/dL LDL Cholesterol, Calc 165.1 H (0.0-131.0) mg/dL VLDL Cholesterol, Calc 56.20 H (5.00-40.00) mg/dL HDL Cholesterol 37.70 L (40.00-60.00) mg/dL
[2025-01-19] MEDS: SODIUM CHLORIDE 0.9% 1,000 ML IV ONE (11:41)
[2025-01-19] MEDS: HEPARIN SODIUM,PORCINE (1 ML) 2,500 UNIT in SODIUM CHLORIDE 0.9% 250 ML IRRIGATION PRN (11:43)
[2025-01-19] MEDS: HEPARIN SODIUM,PORCINE 10,000 UNIT in SODIUM CHLORIDE 0.9% 1,000 ML IRRIGATION PRN (11:43)
[2025-01-19] MEDS: fentaNYL (PF) 50 MCG/ML 2 ML AMP IVP ONE (11:59)
[2025-01-19] MEDS: LIDOCAINE 1% INJ 10MG/ML (20 ML MDV) SQ ONE (12:01)
[2025-01-19] MEDS: VERAPAMIL SYRINGE (5 MG/10 ML) INTRAARTER ONE (12:03)
[2025-01-19] MEDS: HEPARIN SODIUM 1,000 UN/ML (10ML VL) IV ONE (12:06)
[2025-01-19] MEDS: IOPAMIDOL-370 100ML BTL INJ ONE (12:15)
[2025-01-19] MEDS ORDERED: RX INFO: IV CONTRAST WAS GIVEN 1 EACH MISC MISCELLANE PRN (12:31)
[2025-01-19 12:37] LABS: Glucose,Whole Blood 111 mg/dL (70-110)
--- NOTE | 2025-01-19 12:39 | P.CARDCATH ---
Date of Procedure: 01/19/25 Description of Procedure: Cardiac Catheterization: The patient is a 44-year-old male who has not seen a physician in a while presented with symptoms of dyspnea and palpitations, was noted to be in atrial fibrillation and subsequently converted to sinus mechanism. He was noted to be hypertensive had evidence of diabetes and hyperlipidemia. His echocardiogram showed severe cardiomyopathy. Recommendations were made regarding cardiac catheterization, the risks and the complications were discussed with the patient who is in full understanding and agreement. Procedure Description: Patient was brought to rn labor and delivery in fasting semi-sedated state after receiving Fentanyl and Benadryl achieiving moderate conscious sedated state. Using Xylocaine Anesthesia and modified Seldinger technique, a 6-Bermudian sheath was introduced in the right radial artery . Subsequently, selective coronary angiography was performed using a 5-Bermudian 3.5 bend Alfa catheter. Multiple views of the coronary artery including hemiaxial views were obtained. The 5 [place]ian pigtail catheter was used to cross the aortic valve and LVEDP was calculated. Following that, catheter and sheath were removed. Hemostasis was obtained with deployment of vascular band . There was no immediate complication. Patient was returned to room in stable condition. Of note, the patient received a total of 5000 units of intravenous heparin as well as intra-arterial verapamil. Findings: Left main: This is a large size vessel, trifurcating into LAD, left circumflex and ramus intermedius, left main has no obstructive disease. LAD: [This is a large size vessel, reaching to the apex with a wraparound apex segment, giving rise to 3 small diagonal branch, the LAD proximally has 20 to 30% plaque with no high-grade stenosis.] Left circumflex: This is a large dominant vessel, giving rise to a moderately sized obtuse marginal branch in the midsegment and distally bifurcating into PDA and PLV. The left circumflex has no obstructive disease RCA: This is a small nondominant vessel that has a 10% plaque proximally with no high-grade stenosis Ramus intermedius: This is a large size vessel reaching to the apical lateral wall. The ramus intermedius has no evidence of obstructive disease Left Ventriculogram: Not performed Hemodynamics: There was no gradient across aortic valve, LVEDP was 28-32 mmHg Conclusion: 1. Mild plaque in the proximal LAD and nondominant right 2. Left dominant 3. Elevated LVEDP 4. No obstructive disease in the left circumflex Recommendations: The patient has findings consistent with nonischemic cardiomyopathy, I will optimize his medical regimen. Anticoagulation will be initiated, his [id number]- VASc 2 score is 3, he will be evaluated as an outpatient for the need to undergo a sleep study. The findings and the recommendations were discussed with the patient and the family and they were in full understanding and agreement. Duration of sedation is 14 minutes.
[2025-01-19] MEDS: SODIUM CHLORIDE 0.9% 1,000 ML IV SCH (12:40)
[2025-01-19] MEDS: SACUBITRIL/VALSARTAN 24 MG-26 MG TABLET PO SCH (13:10)
[2025-01-19] MEDS: APIXABAN 5 MG TAB PO SCH ×2 (13:10→17:51)
[2025-01-19] MEDS: SPIRONOLACTONE 25 MG TAB PO SCH (13:10)
[2025-01-19 14:03] LABS: African American GFR (CKD) >90 (>60 ml/min/1.73 sqM); Anion Gap 10 mmol/L; Blood Urea Nitrogen 14 mg/dL (9-20); Calcium 9.3 mg/dL (8.4-10.2); Carbon Dioxide 19 mmol/L (22-30); Chloride 106 mmol/L (98-107); Glucose 113 mg/dL (74-99); Non-African American GFR(CKD) >90 (>60 ml/min/1.73 sqM); Potassium 4.5 mmol/L (3.5-5.1); Sodium 135 mmol/L (137-145)
[2025-01-19 16:49] LABS: Glucose,Whole Blood 103 mg/dL (70-110)
[2025-01-19 20:11] LABS: Glucose,Whole Blood 116 mg/dL (70-110)
[2025-01-19] MEDS ORDERED: ATORVASTATIN 40 MG TAB PO SCH (21:00)
[2025-01-20 06:03] LABS: Glucose,Whole Blood 119 mg/dL (70-110)
[2025-01-20] MEDS ORDERED: APIXABAN 5 MG TAB PO SCH (09:30)
[2025-01-20 11:34] LABS: Glucose,Whole Blood 94 mg/dL (70-110)
[2025-01-20] MEDS: AMIODARONE 200 MG TAB PO SCH (12:33)
[2025-01-20] MEDS: METOPROLOL SUCCINATE (ER) 25 MG TAB.ER.24H PO STA (12:33)
--- NOTE | 2025-01-20 14:06 | P.PN ---
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 He has a past medical history of ADD. We have been asked to evaluate the patient for new onset of atrial fibrillation. Patient gives history that 2 days ago he woke up with shortness of breath was unable to catch his breath for a long period of time during the day by 8 PM in the evening he was feeling back to normal. He decided to set up an appointment with a PCP and was seen yesterday in the office. Patient was found to be in atrial fibrillation and was sent to [facility] center for evaluation. Patient was found to be in atrial fibrillation with RVR and has since converted to sinus rhythm. Patient was started on heparin drip and Cardizem drip. He states he has had a cough and at that time tightness in his chest. He denies palpitations. He states he had hypertension 13 years ago and his blood pressure was 150/85 approximately on medication and he decided to stop the medication because the medications did not improve his blood pressure readings. He denies prior history of diabetes but his A1c is 6.8. He denies any blood in his urine or stool. No lightheadedness or dizziness. No syncopal episodes. 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 He denies smoking history. He states he does not drink alcohol often but when he does he overindulges. Patient also notes that he snores and has not had a workup for JAYSHREE. Patient presented with a blood pressure of 152/109. Blood pressure 131/87, heart rate 88, pulse ox 97% on room air. Patient is feeling well at the time of evaluation. Preliminary report on echocardiogram is a low EF. Because of this, Dr. George discussed with the patient recommendations for cardiac catheterization and he is agreeable to move forward with this today. -EKG: Atrial fibrillation with ventricular rate of 130 bpm. Repeat EKG this morning is sinus rhythm nonspecific T wave changes. -Chest x-ray: No acute process. -CTA chest: No pulmonary embolism. Small focal lung parenchymal abnormalities nonspecific could represent focal areas of acute or chronic inflammation. Liver steatosis. -Laboratory studies: WBC 8.6, hemoglobin 14.5, D-dimer 0.68, sodium 134, BUN 18 creatinine 1.03. Troponin negative x 1. proBNP 1800. Triglycerides 281, livia sterol 259, LDL 165, TSH 2.7. Hemoglobin A1c 6.8. Magnesium 1.9. -Home cardiac medications: Losartan 50 daily was prescribed on 01/18 and patient has not started it. 01/20/2025 Patient is status post cardiac catheterization with Dr. George revealing mild plaque in the proximal LAD and nondominant right. Left dominant system. No obstructive disease in the left circumflex. Elevated LVEDP. Patient examined this morning to bedside. Patient currently denies chest pain or pressure. He denies shortness of breath. This morning the patient is currently in A-fib with RVR. He denies any palpitations, dizziness, or lightheadedness. PHYSICAL EXAM: VITAL SIGNS: Reviewed. GENERAL: Well-developed in no acute distress. NECK: Supple. No JVD or thyromegaly LUNGS: Respirations even and unlabored. Lungs essentially clear to auscultation bilaterally. HEART: Tachycardic. Irregular rate and rhythm. S1 and S2 heard. EXTREMITIES: Normal range of motion. No clubbing or cyanosis. Peripheral pulses intact. No lower extremity edema ASSESSMENT: New onset paroxysmal A-fib with RVR Cardiomyopathy, nonischemic Uncontrolled hypertension Elevated D-dimer, PE ruled out by CTA Hyperlipidemia Suspect obstructive sleep apnea and recommend outpatient sleep study Morbid obesity with BMI of 45 Hepatic steatosis PLAN: Continue current cardiac medications including Eliquis, Lipitor, Farxiga, metoprolol, Entresto, and Aldactone Increase metoprolol succinate to 50 mg daily. Given additional 25 mg now Add oral amiodarone 400 mg twice a day Continue telemetry monitoring Recommend outpatient sleep study Continue to monitor patient for an additional 24 hours If patient's heart rates are controlled tomorrow, patient may be discharged home from a cardiac standpoint Nurse practitioner note has been reviewed by physician. Signing provider agrees with the documented findings, assessment, and plan of care documented by TRAIN CONTROL ELECTRONIC TECHNICIAN as a scribe. Objective - Vital Signs Vital signs: Vital Signs Temp 98.4 F 01/20/25 12:00 Pulse 120 H 01/20/25 12:00 Resp 18 01/20/25 12:00 BP 141/83 01/20/25 12:00 Pulse Ox 97 01/20/25 12:00 FiO2 Intake & Output 01/19/25 01/20/25 01/20/25 18:59 06:59 18:59 Intake Total 2305 480 Balance 2305 480 Weight 146 kg Intake: IV 300 Intake, IV Titration 85 Amount Diltiazem 125 mg In 85 Sodium Chloride 0.9% 100 ml @ 10 MG/HR 10 mls/hr IV .[id number] VALENTÍN Rx#: [id number] Oral 1920 480 Other: Voiding Method Toilet Toilet # Voids 1 2 - Labs CBC & Chem 7: 01/18/25 11:20 01/19/25 12:43 Labs: Abnormal Lab Results - Last 24 Hours (Table) 01/19/25 01/19/25 01/20/25 Range/Units 12:43 20:09 06:01 Sodium 135 L (137-145) mmol/L Carbon Dioxide 19 L (22-30) mmol/L Glucose 113 H (74-99) mg/dL POC Glucose (mg/dL) 116 H 119 H (70-110) mg/dL
--- NOTE | 2025-01-20 15:25 | P.PN ---
Subjective Progress Note Date: 01/20/25 Patient is a 44-year-old male with past medical history of morbid obesity BMI 46, not following with primary care physician for years, who presented to the ER from his new PCP office for abnormal EKG showing a flutter reportedly. He schedule an appointment for01/18 for evaluation of ongoing shortness of breath that started 2 or 3 weeks ago after he was diagnosed with flu at urgent care. On 01/17 his shortness of breath got to the point where he could not catch up on his breath, and then resolved by the evening and he has been feeling back to his normal ever since. He does some heavy duty at work, transports heavy objects, usually gets short of breath but recovers fast, lately noted that his recovery time has increased significantly. He denies any associated chest pain, discomfort, abdominal pain, fevers, chills, diaphoresis, nausea, vomiting, dizziness, lightheadedness, abdominal discomfort, changes in bowel habits, urinary symptoms, lower extremity swelling. Denied PND, orthopnea He denies any history of previous cardiac disease. Family history is significant for abnormal heartbeats in his maternal grandfather. He is a non- smoker, no history of heavy alcohol use, no drug use. On arrival he was afebrile and tachycardic with heart rate in 124, BP elevated 152/109, satting well on room air. Lab work significant for normal CBC, elevated D-dimer 0.68, otherwise unremarkable coagulation, chemistry profile with sodium of 134, normal potassium, chloride, bicarb, creatinine, glucose elevated 135, plasma lactic acid normal, troponin negative, ALT mildly elevated 59, normal AST, BNP 1800 EKG showed A-fib with RVR heart rate in 130s, personally reviewed. Chest x-ray reviewed, no acute cardiopulmonary process. CTA showed no signs of PE, did reveal small focal lung parenchymal abnormalities, nonspecific, follow-up CT in 3 months recommended. Liver steatosis. Patient will be admitted for further evaluation of new onset A-fib with RVR, started on heparin and Cardizem drips, cardiology consulted, TTE ordered 01/19 to sinus rhythm, Cardizem discontinued. A1c elevated 6.8, patient notified, started on atorvastatin 40 mg. TTE showed EF of 20 to 25% mild global hypokinesis, mild to moderate mitral regurg, no pericardial effusion, plan for heart cath today. Started on Toprol-XL 25 p.o. daily, Aldactone 25 mg p.o. daily, Farxiga 10 mg p.o. daily, Lipitor 40 mg p.o. daily, Entresto twice daily adde, Cardiology added amiodarone 400 p.o. twice daily for better heart rate control.Heart cath 01/20 showed mild plaque in the proximal LAD Multiple discussions regarding lifestyle modifications had place Subjective: Feels back to baseline, denied chest pain, shortness of breath Pertinent positives and negatives as discussed above, a complete review of systems was performed and all other systems are negative. Vitals Signs Reviewed. General: nontoxic, no distress, appears at stated age, obese Derm: warm, dry Head: atraumatic, normocephalic, symmetric Eyes: EOMI, no lid lag, anicteric sclera, pupils equal round reactive to light ENT: Nose and ears atraumatic Neck: No thyromegaly, supple Mouth: no lip lesion, mucus membranes moist Cardiovascular: S1S2 irreg, tachycardic, no murmur Lungs: clear to auscultation bilateral, no rhonchi, no rales, no wheeze, no accessory muscle use Abdominal: soft, nontender to palpation, no guarding, no appreciable organ omegaly Ext: no gross muscle atrophy, muscle strength muscle strength 5 out of 5 in all 4 extremities, no contractures Neuro: CN II-XII grossly intact Psych: Alert, oriented, appropriate affect Data Reviewed Today: Pertinent Labs: BNP 523, glucose controlled Assessment and Plan: New onset A-fib with RVR converted to sinus Newly diagnosed HFrEF EF 20 to 25% with global hypokinesis Hyperlipidemia -Cardiology consulted, appreciate recommendations -Heparin drip discontinued, started on Eliquis 5 mg twice daily -Started on Toprol-XL 25 p.o. daily, Aldactone 25 mg p.o. daily, Farxiga 10 mg p.o. daily, Lipitor 40 mg p.o. daily, Entresto twice daily added -Cardiology added amiodarone 400 p.o. twice daily for better heart rate control -Heart cath 01/20 showed mild plaque in the proximal LAD -Continue telemetry -Recommend outpatient sleep study Type II DM -Newly diagnosed, will follow-up with primary care physician regarding oral therapy -Continue Accu-Cheks with SSI low intensity, hypoglycemic precautions -, Discussed importance of weight loss and diet compliance Morbid obesity BMI 46 Hepatic steatosis elevated liver enzymes 2/2 above -Recommend structured weight loss program CODE STATUS: Full code DVT prophylaxis: [email or web address] Anticipated discharge date: 01/[address]: Home Objective - Vital Signs Vital signs: Vital Signs Temp 98.4 F 01/20/25 12:00 Pulse 120 H 01/20/25 12:00 Resp 18 01/20/25 12:00 BP 141/83 01/20/25 12:00 Pulse Ox 97 01/20/25 12:00 FiO2 Intake & Output 01/19/25 01/20/25 01/20/25 18:59 06:59 18:59 Intake Total 2305 720 Balance 2305 720 Weight 146 kg Intake: IV 300 Intake, IV Titration 85 Amount Diltiazem 125 mg In 85 Sodium Chloride 0.9% 100 ml @ 10 MG/HR 10 mls/hr IV .[id number] VALENTÍN Rx#: [id number] Oral 1920 720 Other: Voiding Method Toilet Toilet # Voids 1 2 - Labs CBC & Chem 7: 01/18/25 11:20 01/19/25 12:43 Labs: Abnormal Lab Results - Last 24 Hours (Table) 01/19/25 01/20/25 Range/Units 20:09 06:01 POC Glucose (mg/dL) 116 H 119 H (70-110) mg/dL
[2025-01-20 16:20] LABS: Glucose,Whole Blood 98 mg/dL (70-110)
[2025-01-20] MEDS: ATORVASTATIN 40 MG TAB PO SCH (19:45)
[2025-01-20 20:11] LABS: Glucose,Whole Blood 120 mg/dL (70-110)
[2025-01-21 00:36] VITALS: RESP 18
[2025-01-21 06:01] VITALS: TEMP 97.9
[2025-01-21 06:10] LABS: Glucose,Whole Blood 122 mg/dL (70-110)
[2025-01-21 07:49] LABS: African American GFR (CKD) >90 (>60 ml/min/1.73 sqM); Anion Gap 12 mmol/L; Blood Urea Nitrogen 16 mg/dL (9-20); Calcium 9.7 mg/dL (8.4-10.2); Carbon Dioxide 19 mmol/L (22-30); Chloride 103 mmol/L (98-107); Glucose 119 mg/dL (74-99); Non-African American GFR(CKD) 78 (>60 ml/min/1.73 sqM); Potassium 4.6 mmol/L (3.5-5.1); Sodium 134 mmol/L (137-145)
[2025-01-21 07:59] VITALS: BP 97/58; PULSE 57
[2025-01-21] MEDS: METOPROLOL SUCCINATE (ER) 50 MG TAB.ER.24H PO SCH (08:04)
[2025-01-21 11:37] LABS: Glucose,Whole Blood 104 mg/dL (70-110)
--- NOTE | 2025-01-21 12:38 | P.PN ---
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 He has a past medical history of ADD. We have been asked to evaluate the patient for new onset of atrial fibrillation. Patient gives history that 2 days ago he woke up with shortness of breath was unable to catch his breath for a long period of time during the day by 8 PM in the evening he was feeling back to normal. He decided to set up an appointment with a PCP and was seen yesterday in the office. Patient was found to be in atrial fibrillation and was sent to [facility] center for evaluation. Patient was found to be in atrial fibrillation with RVR and has since converted to sinus rhythm. Patient was started on heparin drip and Cardizem drip. He states he has had a cough and at that time tightness in his chest. He denies palpitations. He states he had hypertension 13 years ago and his blood pressure was 150/85 approximately on medication and he decided to stop the medication because the medications did not improve his blood pressure readings. He denies prior history of diabetes but his A1c is 6.8. He denies any blood in his urine or stool. No lightheadedness or dizziness. No syncopal episodes. 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 He denies smoking history. He states he does not drink alcohol often but when he does he overindulges. Patient also notes that he snores and has not had a workup for JAYSHREE. Patient presented with a blood pressure of 152/109. Blood pressure 131/87, heart rate 88, pulse ox 97% on room air. Patient is feeling well at the time of evaluation. Preliminary report on echocardiogram is a low EF. Because of this, Dr. George discussed with the patient recommendations for cardiac catheterization and he is agreeable to move forward with this today. -EKG: Atrial fibrillation with ventricular rate of 130 bpm. Repeat EKG this morning is sinus rhythm nonspecific T wave changes. -Chest x-ray: No acute process. -CTA chest: No pulmonary embolism. Small focal lung parenchymal abnormalities nonspecific could represent focal areas of acute or chronic inflammation. Liver steatosis. -Laboratory studies: WBC 8.6, hemoglobin 14.5, D-dimer 0.68, sodium 134, BUN 18 creatinine 1.03. Troponin negative x 1. proBNP 1800. Triglycerides 281, lviia sterol 259, LDL 165, TSH 2.7. Hemoglobin A1c 6.8. Magnesium 1.9. -Home cardiac medications: Losartan 50 daily was prescribed on 01/18 and patient has not started it. 01/20/2025 Patient is status post cardiac catheterization with Dr. George revealing mild plaque in the proximal LAD and nondominant right. Left dominant system. No obstructive disease in the left circumflex. Elevated LVEDP. Patient examined this morning to bedside. Patient currently denies chest pain or pressure. He denies shortness of breath. This morning the patient is currently in A-fib with RVR. He denies any palpitations, dizziness, or lightheadedness. 01/21/2025 Patient examined this morning to bedside. Patient has converted to sinus mechanism. Heart rate in the 60s. He denies chest pain or pressure. He denies shortness of breath. Vital signs are stable. PHYSICAL EXAM: VITAL SIGNS: Reviewed. GENERAL: Well-developed in no acute distress. NECK: Supple. No JVD or thyromegaly LUNGS: Respirations even and unlabored. Lungs essentially clear to auscultation bilaterally. HEART: Regular rate and rhythm. S1 and S2 heard. EXTREMITIES: Normal range of motion. No clubbing or cyanosis. Peripheral pulses intact. No lower extremity edema ASSESSMENT: New onset paroxysmal A-fib with RVR Cardiomyopathy, nonischemic Uncontrolled hypertension Elevated D-dimer, PE ruled out by CTA Hyperlipidemia Suspect obstructive sleep apnea and recommend outpatient sleep study Morbid obesity with BMI of 45 Hepatic steatosis PLAN: Continue current cardiac medications including amiodarone, Eliquis, Lipitor, Farxiga, metoprolol, Entresto, and Aldactone Continue amiodarone 200 mg twice daily for 1 week. After 1 week decrease to 200 mg twice a day for 1 week then decrease to 200 mg daily Patient may be discharged home from a cardiac standpoint and follow-up in the office with Dr. George Nurse practitioner note has been reviewed by physician. Signing provider agrees with the documented findings, assessment, and plan of care documented by VICE CHAIRMAN as a scribe. Objective - Vital Signs Vital signs: Vital Signs Temp 97.9 F 01/21/25 07:56 Pulse 57 L 01/21/25 09:36 Resp 18 01/21/25 09:36 BP 97/58 01/21/25 07:56 Pulse Ox 98 01/21/25 07:56 FiO2 Intake & Output 01/20/25 01/21/25 01/21/25 18:59 06:59 18:59 Intake Total 960 240 Balance 960 240 Weight 143.3 kg Intake: Oral 960 240 Other: Voiding Method Toilet Toilet # Voids 3 1 - Labs CBC & Chem 7: 01/18/25 11:20 01/21/25 06:45 Labs: Abnormal Lab Results - Last 24 Hours (Table) 01/20/25 01/21/25 01/21/25 Range/Units 20:09 06:08 06:45 Sodium 134 L (137-145) mmol/L Carbon Dioxide 19 L (22-30) mmol/L Glucose 119 H (74-99) mg/dL POC Glucose (mg/dL) 120 H 122 H (70-110) mg/dL
--- NOTE | 2025-01-21 12:48 | P.DS ---
Providers Date of admission: 01/18/25 14:14 Attending physician: Hiral Olivo MD Consults: 01/18/25 14:14 Consult Physician Routine Consulting Provider: Thomas Chandra Consult Reason/Comments: new onset afib Do you want consulting provider notified?: Yes Primary care physician: Dilan Perez [facility] Course: Discharge Diagnosis: New onset A-fib with RVR Newly diagnosed HFrEF EF 20 to 25% with global hypokinesis, nonischemic Hypertension Hyperlipidemia Type II DM Morbid obesity BMI 46 Hepatic steatosis Elevated liver enzymes Hospital Course: Patient is a 44-year-old male with past medical history of morbid obesity BMI 46, not following with primary care physician for years, who presented to the ER from his new PCP office for abnormal EKG showing a flutter reportedly. He schedule an appointment for01/18 for evaluation of ongoing shortness of breath that started 2 or 3 weeks ago after he was diagnosed with flu at urgent care. On 01/17 his shortness of breath got to the point where he could not catch up on his breath, and then resolved by the evening and he has been feeling back to his normal ever since. He does some heavy duty at work, transports heavy objects, usually gets short of breath but recovers fast, lately noted that his recovery time has increased significantly. He denies any associated chest pain, discomfort, abdominal pain, fevers, chills, diaphoresis, nausea, vomiting, dizziness, lightheadedness, abdominal discomfort, changes in bowel habits, urinary symptoms, lower extremity swelling. Denied PND, orthopnea He denies any history of previous cardiac disease. Family history is significant for abnormal heartbeats in his maternal grandfather. He is a non- smoker, no history of heavy alcohol use, no drug use. On arrival he was afebrile and tachycardic with heart rate in 124, BP elevated 152/109, satting well on room air. Lab work significant for normal CBC, elevated D-dimer 0.68, otherwise unremarkable coagulation, chemistry profile with sodium of 134, normal potassium, chloride, bicarb, creatinine, glucose elevated 135, plasma lactic acid normal, troponin negative, ALT mildly elevated 59, normal AST, BNP 1800 EKG showed A-fib with RVR heart rate in 130s, personally reviewed. Chest x-ray reviewed, no acute cardiopulmonary process. CTA showed no signs of PE, did reveal small focal lung parenchymal abnormalities, nonspecific, follow-up CT in 3 months recommended. Liver steatosis. Patient will be admitted for further evaluation of new onset A-fib with RVR, started on heparin and Cardizem drips, cardiology consulted, TTE ordered 01/19 to sinus rhythm, Cardizem discontinued. A1c elevated 6.8, patient notified, started on atorvastatin 40 mg. TTE showed EF of 20 to 25% mild global hypokinesis, mild to moderate mitral regurg, no pericardial effusion, plan for heart cath today. Started on Toprol-XL 25 p.o. daily, Aldactone 25 mg p.o. daily, Farxiga 10 mg p.o. daily, Lipitor 40 mg p.o. daily, Entresto twice daily adde, Cardiology added amiodarone 400 p.o. twice daily for better heart rate control., will be discharged home on a Medrol taper 400 twice daily for 7 days, then 200 twice daily for 7 days, then 200 daily. Heart cath 01/20 showed mild plaque in the proximal LAD Multiple discussions regarding lifestyle modifications had place Patient seen and examined at bedside, no complaints no concerns Vital signs reviewed and stable. General: nontoxic, no distress, appears at stated age, obese Derm: warm, dry Head: atraumatic, normocephalic, symmetric Eyes: EOMI, no lid lag, anicteric sclera, pupils equal round reactive to light ENT: Nose and ears atraumatic Neck: No thyromegaly, supple Mouth: no lip lesion, mucus membranes moist Cardiovascular: S1S2 irreg, tachycardic, no murmur Lungs: clear to auscultation bilateral, no rhonchi, no rales, no wheeze, no accessory muscle use Abdominal: soft, nontender to palpation, no guarding, no appreciable organomegaly Ext: no gross muscle atrophy, muscle strength muscle strength 5 out of 5 in all 4 extremities, no contractures Neuro: CN II-XII grossly intact Psych: Alert, oriented, appropriate affect A total of 40] minutes of time were spent preparing this complex discharge summary. Patient was discharged on 01/21/25 Patient Condition at Discharge: Fair Plan - Discharge Summary Discharge Rx Participant: Yes New Discharge Prescriptions: New Spironolactone [Aldactone] 25 mg PO DAILY #30 tab Apixaban [Eliquis] 5 mg PO BID #60 tab Atorvastatin [Lipitor] 40 mg PO HS #30 tab Metoprolol Succinate (ER) [Toprol XL] 50 mg PO DAILY #30 tab Amiodarone [Cordarone] See Taper PO DAILY #60 tab Sacubitril/Valsartan [Entresto 24 mg-26 mg Tablet] 1 each PO BID #60 tab Dapagliflozin Propanediol [Farxiga] 10 mg PO DAILY #30 tab Nitroglycerin Sl Tabs [Nitrostat] 0.4 mg SUBLINGUAL Q5M PRN #30 tab PRN Reason: Chest Pain Continue Calcium Carb/Mag Ox/Zinc Sulf [Evk-Kat-Drqj 334-134-5 mg Tab] 1 tab PO BID Sildenafil Citrate [Viagra] 100 mg PO DIRECTED PRN PRN Reason: E.D. Discontinued Losartan [Cozaar] 50 mg PO DIRECTED Ibuprofen [Motrin Ib] 600 mg PO BID Discharge Medication List Calcium Carb/Mag Ox/Zinc Sulf [Cry-Rqg-Ulcn 334-134-5 mg Tab] 1 tab PO BID 01/18/25 [History] Sildenafil Citrate [Viagra] 100 mg PO DIRECTED PRN 01/18/25 [History] Amiodarone [Cordarone] See Taper PO DAILY #60 tab 01/21/25 [Rx] Apixaban [Eliquis] 5 mg PO BID #60 tab 01/21/25 [Rx] Atorvastatin [Lipitor] 40 mg PO HS #30 tab 01/21/25 [Rx] Dapagliflozin Propanediol [Farxiga] 10 mg PO DAILY #30 tab 01/21/25 [Rx] Metoprolol Succinate (ER) [Toprol XL] 50 mg PO DAILY #30 tab 01/21/25 [Rx] Nitroglycerin Sl Tabs [Nitrostat] 0.4 mg SUBLINGUAL Q5M PRN #30 tab 01/21/25 [Rx] Sacubitril/Valsartan [Entresto 24 mg-26 mg Tablet] 1 each PO BID #60 tab 01/21/25 [Rx] Spironolactone [Aldactone] 25 mg PO DAILY #30 tab 01/21/25 [Rx] Follow up Appointment(s)/Referral(s): Howard George MD [STAFF PHYSICIAN] - 1 Week (please call and make appointment ) Dilan Perez MD [Primary Care Provider] - 1-2 days (please call and make appointment ) Patient Instructions/Handouts: Heart Failure (DC), Heart Healthy Diet (DC), Meal Planning with the Plate Method (DC), Low-Sodium Diet (DC) Activity/Diet/Wound Care/Special Instructions: Please, follow-up with your primary care physician, follow-up with cardiology.Amada [email or web address] monitor your blood pressure daily, keep a log of the readings to discuss with your primary care physician and americ[employer] indian studies professor. Watch your weight daily around the same time, again, keep a log of the readings. Follow diet recommendations provided in the after visit summary, low-sodium diet is highly recommended. Watch your carb intake. Recommend to request referral for sleep studies from your primary care physician. Work on your weight loss as we discussed multiple times, recommend structured weight loss program. Take all your medications as prescribed Discharge Disposition: HOME SELF-CARE
--- NOTE | 2025-01-23 12:05 | CDI ---
Documentation Clarification Form Date: 01/23/2025 11:47:07 AM From: Mary Ellen Stahl Phone: Admit Date: 01/18/2025 02:14:00 PM Patient Name: Rah Elmore Visit Number: [id number] Discharge Date: 01/21/2025 01:38:00 PM ATTENTION: The Clinical Documentation Specialists (CDI) and [facility] Coding Staff appreciate your assistance in clarifying documentation. Please respond to the clarification below the line at the bottom and electronically sign. The CDI & [facility] Coding staff will review the response and follow-up if needed. Please note: Queries are made part of the Legal Health Record. If you have any questions, please contact the author of this message via ITS. Doctor/Provider: Hiral Olivo Your patient has the documented diagnosis of unspecified CHF in PN 01/20/2025. Additional information regarding the type of CHF is requested. History/Risk Factors: Patient is a 44-year-old male with past medical history ofmorbid obesityBMI 46, not following with primary care physician for years, who presented to the ER from his new PCP office forabnormal EKGshowinga flutterreportedly. Clinical indicators H/P on 01/18 On arrival he was afebrile andtachycardicwith heart rate in 124, BPelevated 152/109, satting well on room air. Lab work significant for normal CBC,elevatedD-dimer 0. 68, otherwise unremarkablecoagulation, chemistry profile with sodium of 134, normal potassium, chloride, bicarb, creatinine, [id number], plasma lactic acid normal, troponin negative, ALT [id number], normal AST, BNP 1800 On 01/20 pn - Newly diagnosedHFrEFEF 20 to 25% with global hypokinesis On 01/21 pn - Patient examined this morning to bedside. Patient hasconvertedto sinus mechanism. Heart rate in the 60s. Hedenieschest painorpressure. Hedenies shortness of breath. Vital signs are stable. On 01/21 DS - Newly diagnosedHFrEFEF 20 to 25% with global hypokinesis, nonischemic EKGshowedA-fibwith RVR heart rate in 130s, . Chest x-ray reviewed, no acute cardiopulmonary process. BNP: on 01/18 -1800 , 01/20- 523 Heart cath on 01/19 - Heart cath01/20 showed mildplaquein the proximal LAD Echo- transthoracic on 01/19 DilatedLV. ImpairedLV systolic function with EF between 20 to 25% with global hypokinesia Mild to moderatemitral regurgitation Dilated right ventriclewithimpairedfunction Nopericardial effusion Treatment: started on heparin and Cardizem drips, Started on Toprol-XL 25 p. o. daily, Aldactone 25 mg p. o. daily, Farxiga 10 mg p. o. daily, Lipitor 40 mg p. o. daily, Entresto twice daily adde, Cardiology added amiodarone 400 p. o. twice daily for better heart rate control. , In your professional opinion, can you please clarify the Type of CHF if known? [ x ] Acute Systolic Heart Failure (reduced EF) [ ] Chronic Systolic Heart Failure (reduced EF) [ ] Acute on Chronic Systolic Heart Failure (reduced EF) [ ] Acute Diastolic Heart Failure (preserved EF) [ ] Chronic Diastolic Heart Failure (preserved EF) [ ] Acute on Chronic Diastolic Heart Failure (preserved EF) [ ] Acute Systolic & Diastolic Heart Failure [ ] Chronic Systolic & Diastolic Heart Failure [ ] Acute on Chronic Heart Failure Systolic & Diastolic Heart Failure [ ] Other, please specify [ ] Unable to determine (Template Last Revised: November 2020) MTDD
== END 2025-01-21 13:38 | disposition home or self-care (01) | DRG 286 ==
LOC: EC 09:58 → 3SCARD 14:14
PROVIDERS: ADMIT Student in an Organized Health Care Education/Training Program; ATTEND Student in an Organized Health Care Education/Training Program
PROC: 3E033RZ Introduction of Antiarrhythmic into Peripheral Vein, Percutaneous Approach (ICD-10-PCS; principal; 2025-01-18)
PROC: 4A023N7 Measurement of Cardiac Sampling and Pressure, Left Heart, Percutaneous Approach (ICD-10-PCS; 2025-01-19)
PROC: B2111ZZ Fluoroscopy of Multiple Coronary Arteries using Low Osmolar Contrast (ICD-10-PCS; 2025-01-19)
DX: I48.0 Paroxysmal atrial fibrillation (principal); I50.21 Acute systolic (congestive) heart failure; I11.0 Hypertensive heart disease with heart failure; E11.9 Type 2 diabetes mellitus without complications; E66.01 Morbid (severe) obesity due to excess calories; K76.0 Fatty (change of) liver, not elsewhere classified; I34.0 Nonrheumatic mitral (valve) insufficiency; Z68.42 Body mass index [BMI] 45.0-49.9, adult; I42.8 Other cardiomyopathies; I48.92 Unspecified atrial flutter; E78.5 Hyperlipidemia, unspecified; I25.10 Atherosclerotic heart disease of native coronary artery without angina pectoris; Z79.899 Other long term (current) drug therapy
CPT/HCPCS: 36415; 71046; 71275; 80048; 80053; 80061; 83036; 83605; 83735; 83880; 84443; 84484; 85025; 85379; 85610; 85730; 93005; 93306; 93458; 96365; 96366; 96368; 99291